=== PATIENT | male | born 1940 | race Caucasian/White ===

== ENCOUNTER 2021-11-15 17:00 | Inpatient (IN) | payer MEDICARE ==
[2021-11-15 17:39] LABS: Hemoglobin 15.3 g/dL (13.5-17.5); Mean Corpuscular HGB CONC 35.1 g/dL (32.0-36.0); Mean Corpuscular Hemoglobin 33.3 pg (27.0-33.0); Mean Corpuscular Volume 94.8 fl (81.2-95.1); Mean Platelet Volume 10.4 fl (7.4-10.4); Platelet Count 219 10x3/uL (150-450)
[2021-11-15 17:54] LABS: Anion Gap 13 mmol/L (10-20); BUN (Urea Nitrogen) 24 mg/dL (8.4-25.7); Calc. Creatinine Clearance 0 mL/min (70-130); Calcium 9.3 mg/dL (7.8-10.44); Carbon Dioxide 30 mmol/L (23-31); Chloride 105 mmol/L (98-107); Estimated GFR 56; Glucose 121 mg/dL (83-110); Potassium 4.3 mmol/L (3.5-5.1); Sodium 144 mmol/L (136-145)
[2021-11-19] MEDS ORDERED: Albumin 5% 500 ML ONE (06:15)
[2021-11-19] MEDS ORDERED: fentaNYL Citrate/PF 100 MCG/2 ML SYRINGE ONE (06:44)
[2021-11-19] MEDS ORDERED: Midazolam HCl 5 mg/5 ml Vial ONE (06:44)
[2021-11-19] MEDS ORDERED: Dexmedetomidine 200 MCG/2 ML VIAL ONE (06:44)
[2021-11-19] MEDS ORDERED: Heparin 10,000 UNITS/1 ML VIAL 30,000 UNITS in Sodium Chloride 0.9% 1,000 ML FS SCH (06:45)
[2021-11-19] MEDS ORDERED: Ondansetron ODT 4 MG TAB ONE (07:10)
[2021-11-19] MEDS ORDERED: Lidocaine 1% PF 5 ML VIAL ONE ×2 (07:10→07:32)
[2021-11-19] MEDS ORDERED: CEFAZOLIN 2 GM VIAL ONE (07:20)
[2021-11-19] MEDS ORDERED: Sodium Chloride 0.9% 100 ML ONE (07:20)
[2021-11-19] MEDS ORDERED: Magnesium Sulfate 1 GM/2 ML VIAL ONE (07:32)
[2021-11-19] MEDS ORDERED: Thrombin 5000 UNITS/5 ML VIAL ONE (07:32)
[2021-11-19] MEDS ORDERED: Heparin 5,000 UNITS/ML VIAL ONE (07:32)
[2021-11-19] MEDS ORDERED: Norepinephrine 4 MG/4 ML VIAL ONE (07:32)
[2021-11-19] MEDS ORDERED: Cardioplegic Soln 1,000 ML BAG ONE (07:32)
[2021-11-19] MEDS ORDERED: Ondansetron PF 4 MG/2 ML Vial ONE (07:32)
[2021-11-19] MEDS ORDERED: Heparin 30,000 units/30 ml VIAL ONE (07:32)
[2021-11-19] MEDS ORDERED: Sodium Bicarb 50 MEQ/50 ML Abboject 8.4% SYRINGE ONE (07:32)
[2021-11-19] MEDS ORDERED: Glycopyrrolate 0.2 MG/ML 5 ML SYRINGE ONE (07:32)
[2021-11-19] MEDS ORDERED: Aminocaproic Acid 5 GM/20 ML VIAL ONE (07:32)
[2021-11-19] MEDS ORDERED: Dexamethasone 20 MG/5 ML VIAL ONE (07:32)
[2021-11-19] MEDS ORDERED: PROPOFOL 200 MG/20 ML VIAL ONE (07:32)
[2021-11-19] MEDS ORDERED: Protamine Sulfate 250 MG/25 ML VIAL ONE (07:32)
[2021-11-19] MEDS ORDERED: Lidocaine 2% PF 100 mg/5 ml Syringe ONE (07:32)
[2021-11-19] MEDS ORDERED: Calcium Chloride 1 GM/10 ML Abboject SYRINGE ONE (07:32)
[2021-11-19] MEDS ORDERED: Mannitol 12.5 GM/50 ML ONE (07:32)
[2021-11-19] MEDS ORDERED: Papaverine 60 MG/2 ML VIAL ONE (07:32)
[2021-11-19] MEDS ORDERED: Vecuronium 10 MG VIAL ONE (07:32)
[2021-11-19] MEDS ORDERED: Insulin Regular 300 UNITS/3 ML VIAL ONE (10:57)
[2021-11-19] MEDS ORDERED: Fentanyl 100 MCG/2 ML VIAL SLOW IVP PRN ×2 (11:39)
[2021-11-19] MEDS ORDERED: Nitroglycerin 50 MG/250 ML BOT 250 ML IVPB PRN (11:39)
[2021-11-19] MEDS ORDERED: NOREPINEPHRINE 8 MG/250 ML-D5W 250 ML IVPB PRN (11:39)
[2021-11-19] MEDS ORDERED: hydrALAZINE 20 MG/ML VIAL SLOW IVP PRN (11:39)
[2021-11-19] MEDS ORDERED: Bisacodyl 10 MG SUPP PR PRN (11:39)
[2021-11-19] MEDS ORDERED: Acetaminophen 325 MG TAB PO PRN (11:39)
[2021-11-19] MEDS ORDERED: Mag-Al 1200 mg/1200 mg/30 ML UDCUP PO PRN (11:39)
[2021-11-19] MEDS ORDERED: niCARdipine 25 MG in Sodium Chloride 0.9% 250 ML 250 ML IVPB PRN (11:39)
[2021-11-19] MEDS ORDERED: Guaifenesin DM 100-10/5 ML UDCUP PO PRN (11:39)
[2021-11-19] MEDS ORDERED: Post-Op Insulin Drip Protocol IVPB ONE (11:39)
[2021-11-19] MEDS ORDERED: Hetastarch 6% 500 ML 500 ML IVPB PRN (11:39)
[2021-11-19] MEDS ORDERED: Morphine 2 MG/ML VIAL SLOW IVP PRN (11:39)
[2021-11-19] MEDS ORDERED: DOPamine 400 MG/D5W 250 ML 250 ML IVPB PRN (11:39)
[2021-11-19] MEDS ORDERED: Ondansetron PF 4 MG/2 ML Vial IVP PRN (11:39)
[2021-11-19] MEDS ORDERED: Bisacodyl 5 MG TAB PO PRN (11:39)
[2021-11-19] MEDS: Lactated Ringer's 1,000 ML IV SCH (12:10)
[2021-11-19 12:22] LABS: Hemoglobin 12.1 g/dL (14.0-18.0); Mean Corpuscular HGB CONC 34.4 g/dL (32.0-36.0); Mean Corpuscular Hemoglobin 34.1 pg (27.0-31.0); Mean Corpuscular Volume 98.9 fL (78.0-98.0); Mean Platelet Volume 8.1 fL (7.4-10.4); Platelet Count 161 thou/uL (130-400); RBC Distribution Width 11.9 % (11.5-14.5); Red Blood Cell (RBC) Count 3.57 mill/uL (4.70-6.10); White Blood Cell (WBC) Count 24.6 thou/uL (4.8-10.8)
[2021-11-19] MEDS ORDERED: Dextrose 5% in Water 1,000 ML IV PRN (12:30)
[2021-11-19] MEDS ORDERED: Dextrose 50% Abboject 50 ML SYRINGE SLOW IVP PRN (12:30)
[2021-11-19] MEDS ORDERED: HUMULIN R 100 UNITS in Sodium Chloride 0.9% 100 ML IVPB SCH (12:30)
[2021-11-19 12:31] LABS: INR-International Normal Ratio 1.5; Prothrombin Time 17.8 sec (12.0-14.7)
[2021-11-19 12:32] LABS: Actual Bicarbonate (HCO3a) 21.7 mEq/L (22-28); Base Excess (BEa) -3.6 mEq/L (-2.0 to +3.0); CO2 Tension 40.2 mmHg (35.0-45.0); Calcium, Ionized (arterial) 1.02 mmol/L (1.12-1.30); Carboxyhemoglobin (COHb) 0.1 gm% (0.0-3.0); Hemoglobin (Hb) 12.6 g/dL (14.0-18.0); O2 Tension (PaO2), arterial 100.7 mmHg (> 70.0); Potassium - ABG Lab 3.48 mmol/L (3.70-5.30); pH, Arterial 7.35 (7.35-7.45)
[2021-11-19 12:32] LABS: PTT 33.2 sec (22.9-36.1)
[2021-11-19 12:36] LABS: Puncture Site Arterial Line
[2021-11-19] MEDS: Ketorolac Tromethamine 30 MG/ML VIAL IVP SCH ×3 (12:36→23:20)
[2021-11-19 12:37] LABS: Anion Gap 12 mmol/L (10-20); BUN (Urea Nitrogen) 16 mg/dL (8.4-25.7); Calc. Creatinine Clearance 84 mL/min (70-130); Calcium 7.1 mg/dL (7.8-10.44); Carbon Dioxide 21 mmol/L (23-31); Chloride 112 mmol/L (98-107); Estimated GFR 91; Glucose 107 mg/dL (83-110); Potassium 3.6 mmol/L (3.5-5.1); Sodium 141 mmol/L (136-145)
[2021-11-19 12:44] LABS: Band 10 % (5-11); Lymphocytes 4 % (21-51); MDiff Complete? YES; Metamyelocyte 1 % (0-0); Monocytes 2 % (0-10); Neutrophil 83 % (42-75); Platelet Morphology Comment Appears Adequate
[2021-11-19] MEDS: Potassium Chloride 20 MEQ/100 ML PREMIX BAG IVPB PRN (13:07)
[2021-11-19] MEDS: CEFAZOLIN 2 GM in Sodium Chloride 0.9% 100 ML IVPB SCH ×2 (16:10→23:19)
[2021-11-19] MEDS: Insulin Regular 300 UNITS/3 ML VIAL SC PRN ×2 (16:17→20:25)
[2021-11-19 17:37] LABS: Potassium 4.5 mmol/L (3.5-5.1)
[2021-11-19 17:58] LABS: ALV-art Gradient 126.475 mmHg (0-20); Actual Bicarbonate (HCO3a) 17.6 mEq/L (22-28); Base Excess (BEa) -7.4 mEq/L (-2.0 to +3.0); CO2 Tension 33.7 mmHg (35.0-45.0); Calcium, Ionized (arterial) 1.04 mmol/L (1.12-1.30); Carboxyhemoglobin (COHb) 0.1 gm% (0.0-3.0); Hemoglobin (Hb) 10.4 g/dL (14.0-18.0); O2 Tension (PaO2), arterial 116.6 mmHg (> 70.0); Potassium - ABG Lab 4.33 mmol/L (3.70-5.30); Puncture Site Arterial Line; pH, Arterial 7.34 (7.35-7.45)
[2021-11-19] MEDS: Atorvastatin Calcium 10 MG TAB PO SCH (20:26)
[2021-11-19] MEDS: Latanoprost 0.005% Ophth Soln 2.5 ml Bottle EA EYE SCH (20:31)
[2021-11-19] MEDS ORDERED: Famotidine/PF 20 mg/2ml Vial SLOW IVP SCH (21:00)
[2021-11-20] MEDS: Lactated Ringer's 1,000 ML IV SCH ×2 (01:12→13:01)
[2021-11-20 04:09] LABS: Anion Gap 11 mmol/L (10-20); BUN (Urea Nitrogen) 22 mg/dL (8.4-25.7); Calc. Creatinine Clearance 64 mL/min (70-130); Calcium 7.3 mg/dL (7.8-10.44); Carbon Dioxide 22 mmol/L (23-31); Chloride 113 mmol/L (98-107); Estimated GFR 71; Glucose 149 mg/dL (83-110); Potassium 4.4 mmol/L (3.5-5.1); Sodium 142 mmol/L (136-145)
[2021-11-20] MEDS: Ketorolac Tromethamine 30 MG/ML VIAL IVP SCH ×3 (05:08→18:53)
[2021-11-20 05:49] LABS: #Lymphocytes 0.3 thou/uL (1.20-3.40); #Monocytes 1.4 thou/uL (0.11-0.59); #Neutrophils 11.3 thou/uL (1.40-6.50); %Basophils 0.4 % (0.0-1.0); %Eosinophils 0.1 % (0.0-10.0); %Lymphocytes 2.3 % (21.0-51.0); %Monocytes 10.4 % (0.0-10.0); %Neutrophils 86.9 % (42.0-75.0); Hemoglobin 6.7 g/dL (14.0-18.0); Mean Corpuscular HGB CONC 33.4 g/dL (32.0-36.0); Mean Corpuscular Hemoglobin 33.7 pg (27.0-31.0); Mean Platelet Volume 8.6 fL (7.4-10.4); Platelet Count 128 thou/uL (130-400); RBC Distribution Width 12.5 % (11.5-14.5); Red Blood Cell (RBC) Count 1.99 mill/uL (4.70-6.10)
[2021-11-20] MEDS: CEFAZOLIN 2 GM in Sodium Chloride 0.9% 100 ML IVPB SCH (08:24)
[2021-11-20] MEDS: Polyethylene Glycol 3350 17 GM Packet PO SCH (08:29)
[2021-11-20] MEDS: Aspirin 325 MG TAB PO SCH (08:29)
[2021-11-20] MEDS: Magnesium 2 GM/50 ML(in water) 2 GM in Premix Bag 1 BAG IVPB SCH (08:30)
[2021-11-20] MEDS ORDERED: Insulin Glargine 30 UNITS/0.3 ML VIAL SC PRN (12:25)
[2021-11-20] MEDS: Atorvastatin Calcium 10 MG TAB PO SCH (21:01)
[2021-11-20] MEDS: Latanoprost 0.005% Ophth Soln 2.5 ml Bottle EA EYE SCH (21:01)
[2021-11-21 04:50] LABS: #Eosinphils 0.1 thou/uL (0.0-0.7); #Lymphocytes 0.8 thou/uL (1.20-3.40); #Monocytes 1.5 thou/uL (0.11-0.59); #Neutrophils 10.3 thou/uL (1.40-6.50); %Basophils 0.2 % (0.0-1.0); %Eosinophils 0.5 % (0.0-10.0); %Lymphocytes 6.3 % (21.0-51.0); %Monocytes 11.6 % (0.0-10.0); %Neutrophils 81.5 % (42.0-75.0); Hemoglobin 8.8 g/dL (14.0-18.0); Mean Corpuscular HGB CONC 33.6 g/dL (32.0-36.0); Mean Corpuscular Hemoglobin 33.5 pg (27.0-31.0); Mean Corpuscular Volume 99.6 fL (78.0-98.0); Mean Platelet Volume 8.8 fL (7.4-10.4); Platelet Count 96 thou/uL (130-400); RBC Distribution Width 14.3 % (11.5-14.5); Red Blood Cell (RBC) Count 2.61 mill/uL (4.70-6.10); White Blood Cell (WBC) Count 12.6 thou/uL (4.8-10.8)
[2021-11-21] MEDS: Lactated Ringer's 1,000 ML IV SCH ×2 (04:54→09:22)
[2021-11-21 05:08] LABS: Anion Gap 10 mmol/L (10-20); BUN (Urea Nitrogen) 26 mg/dL (8.4-25.7); Calc. Creatinine Clearance 64 mL/min (70-130); Calcium 7.3 mg/dL (7.8-10.44); Carbon Dioxide 22 mmol/L (23-31); Chloride 111 mmol/L (98-107); Estimated GFR 68; Glucose 124 mg/dL (83-110); Potassium 4.4 mmol/L (3.5-5.1); Sodium 139 mmol/L (136-145)
[2021-11-21] MEDS ORDERED: Amiodarone 150 MG, Admixture Fee 1 EACH in Dextrose 5% in Water 100 ML IVPB SCH (08:00)
[2021-11-21] MEDS: Aspirin 325 MG TAB PO SCH (09:11)
[2021-11-21] MEDS: Magnesium 2 GM/50 ML(in water) 2 GM in Premix Bag 1 BAG IVPB SCH (09:11)
[2021-11-21] MEDS: Polyethylene Glycol 3350 17 GM Packet PO SCH (09:11)
[2021-11-21] MEDS: Amiodarone 450 MG, Admixture Fee 1 EACH in Dextrose 5% in Water 250 ML IVPB SCH ×2 (09:12→19:34)
[2021-11-21] MEDS: Atorvastatin Calcium 40 MG TAB PO SCH (21:58)
[2021-11-21] MEDS: Latanoprost 0.005% Ophth Soln 2.5 ml Bottle EA EYE SCH (21:58)
[2021-11-22 04:57] LABS: Anion Gap 10 mmol/L (10-20); BUN (Urea Nitrogen) 18 mg/dL (8.4-25.7); Calc. Creatinine Clearance 87 mL/min (70-130); Calcium 7.3 mg/dL (7.8-10.44); Carbon Dioxide 26 mmol/L (23-31); Chloride 110 mmol/L (98-107); Estimated GFR 90; Glucose 118 mg/dL (83-110); Potassium 4.4 mmol/L (3.5-5.1); Sodium 142 mmol/L (136-145)
[2021-11-22 05:20] VITALS: BMI 27.6
[2021-11-22 05:33] LABS: #Eosinphils 0.1 thou/uL (0.0-0.7); #Lymphocytes 0.8 thou/uL (1.20-3.40); #Monocytes 1.7 thou/uL (0.11-0.59); %Basophils 0.1 % (0.0-1.0); %Eosinophils 0.6 % (0.0-10.0); %Lymphocytes 5.5 % (21.0-51.0); %Monocytes 11.8 % (0.0-10.0); Hemoglobin 9.1 g/dL (14.0-18.0); Mean Corpuscular HGB CONC 33.4 g/dL (32.0-36.0); Mean Corpuscular Hemoglobin 33.4 pg (27.0-31.0); Mean Corpuscular Volume 99.9 fL (78.0-98.0); Mean Platelet Volume 8.9 fL (7.4-10.4); Platelet Count 119 thou/uL (130-400); RBC Morphology Normal; Red Blood Cell (RBC) Count 2.71 mill/uL (4.70-6.10); White Blood Cell (WBC) Count 14.6 thou/uL (4.8-10.8)
[2021-11-22] MEDS: Amiodarone 200 MG TAB PO SCH ×2 (08:16→20:42)
[2021-11-22] MEDS: Polyethylene Glycol 3350 17 GM Packet PO SCH (08:17)
[2021-11-22] MEDS: Aspirin Chewable 81 MG TAB PO SCH (08:17)
[2021-11-22] MEDS: Atorvastatin Calcium 40 MG TAB PO SCH (20:42)
[2021-11-22] MEDS: Latanoprost 0.005% Ophth Soln 2.5 ml Bottle EA EYE SCH (20:43)
[2021-11-23 04:24] LABS: #Eosinphils 0.2 thou/uL (0.0-0.7); #Monocytes 1.6 thou/uL (0.11-0.59); %Basophils 0.2 % (0.0-1.0); %Eosinophils 1.3 % (0.0-10.0); %Lymphocytes 6.9 % (21.0-51.0); %Monocytes 11.5 % (0.0-10.0); %Neutrophils 80.1 % (42.0-75.0); Hemoglobin 9.2 g/dL (14.0-18.0); Mean Corpuscular HGB CONC 32.7 g/dL (32.0-36.0); Mean Corpuscular Hemoglobin 33.4 pg (27.0-31.0); Mean Platelet Volume 8.5 fL (7.4-10.4); Platelet Count 177 thou/uL (130-400); Red Blood Cell (RBC) Count 2.75 mill/uL (4.70-6.10); White Blood Cell (WBC) Count 13.8 thou/uL (4.8-10.8)
[2021-11-23 04:51] LABS: Anion Gap 12 mmol/L (10-20); BUN (Urea Nitrogen) 19 mg/dL (8.4-25.7); Calc. Creatinine Clearance 79 mL/min (70-130); Calcium 7.7 mg/dL (7.8-10.44); Carbon Dioxide 25 mmol/L (23-31); Chloride 107 mmol/L (98-107); Estimated GFR 87; Glucose 112 mg/dL (83-110); Potassium 3.9 mmol/L (3.5-5.1); Sodium 140 mmol/L (136-145)
[2021-11-23] MEDS: Potassium Chloride 20 MEQ/100 ML PREMIX BAG IVPB PRN (05:01)
[2021-11-23] MEDS ORDERED: Nitroglycerin 0.4 MG TAB (25 Tab Bottle) SL PRN (06:53)
[2021-11-23] MEDS: Aspirin Chewable 81 MG TAB PO SCH (08:06)
[2021-11-23] MEDS: Furosemide 40 MG TAB PO SCH (08:06)
[2021-11-23] MEDS: Amiodarone 200 MG TAB PO SCH ×4 (08:06→20:42)
[2021-11-23] MEDS: Polyethylene Glycol 3350 17 GM Packet PO SCH (08:06)
[2021-11-23] MEDS: Potassium Chloride 10 MEQ TAB PO SCH (08:06)
[2021-11-23 13:58] LABS: Actual Bicarbonate (HCO3a) 23.5 mEq/L (22-28); Analyzer IN Cardio OR; Base Excess (BEa) -0.5 mEq/L (-2.0 to +3.0); CO2 Tension 37.1 mmHg (35.0-45.0); Calcium, Ionized (arterial) 1.09 mmol/L (1.12-1.30); Carboxyhemoglobin (COHb) 1.2 gm% (0.0-3.0); O2 Tension (PaO2), arterial 147.5 mmHg (> 70.0); Potassium - ABG Lab 3.85 mmol/L (3.70-5.30); pH, Arterial 7.42 (7.35-7.45)
[2021-11-23 13:59] LABS: Actual Bicarbonate (HCO3a) 24.8 mEq/L (22-28); Analyzer IN Cardio OR; Base Excess (BEa) 0.2 mEq/L (-2.0 to +3.0); CO2 Tension 40.1 mmHg (35.0-45.0); Calcium, Ionized (arterial) 0.95 mmol/L (1.12-1.30); Hemoglobin (Hb) 10.6 g/dL (14.0-18.0); O2 Tension (PaO2), arterial 312.2 mmHg (> 70.0); Potassium - ABG Lab 4.81 mmol/L (3.70-5.30); pH, Arterial 7.41 (7.35-7.45)
[2021-11-23 14:00] LABS: Actual Bicarbonate (HCO3a) 23.9 mEq/L (22-28); Analyzer IN Cardio OR; Base Excess (BEa) -0.6 mEq/L (-2.0 to +3.0); CO2 Tension 38.6 mmHg (35.0-45.0); Calcium, Ionized (arterial) 1.11 mmol/L (1.12-1.30); Carboxyhemoglobin (COHb) 0.3 gm% (0.0-3.0); O2 Tension (PaO2), arterial 103.9 mmHg (> 70.0); Potassium - ABG Lab 4.59 mmol/L (3.70-5.30); pH, Arterial 7.41 (7.35-7.45)
[2021-11-23 14:00] LABS: Actual Bicarbonate (HCO3a) 23.4 mEq/L (22-28); Analyzer IN Cardio OR; CO2 Tension 37.7 mmHg (35.0-45.0); Carboxyhemoglobin (COHb) 0.3 gm% (0.0-3.0); Hemoglobin (Hb) 10.4 g/dL (14.0-18.0); O2 Tension (PaO2), arterial 388.5 mmHg (> 70.0); Potassium - ABG Lab 5.23 mmol/L (3.70-5.30); pH, Arterial 7.41 (7.35-7.45)
[2021-11-23 14:00] LABS: Actual Bicarbonate (HCO3v) 25 mEq/L (22-28); Analyzer IN Cardio OR; Base Excess 0.1 mEq/L (-2.0 to +3.0); Chloride (VBG) 107 mmol/L (98-106); Hemoglobin (Hb) 10.5 g/dL (12.6-17.4); Potassium (VBG) 5.03 mmol/L (3.70-5.30); Sodium 134.7 mmol/L (133-146); pH (venous) 7.39 (7.32-7.43)
[2021-11-23 14:01] LABS: Actual Bicarbonate (HCO3a) 23.5 mEq/L (22-28); Analyzer IN Cardio OR; Base Excess (BEa) -3.4 mEq/L (-2.0 to +3.0); CO2 Tension 50.3 mmHg (35.0-45.0); Calcium, Ionized (arterial) 1.07 mmol/L (1.12-1.30); Carboxyhemoglobin (COHb) 0.2 gm% (0.0-3.0); Hemoglobin (Hb) 11.9 g/dL (14.0-18.0); O2 Tension (PaO2), arterial 86.5 mmHg (> 70.0); Potassium - ABG Lab 3.46 mmol/L (3.70-5.30); pH, Arterial 7.29 (7.35-7.45)
[2021-11-23 14:06] LABS: Actual Bicarbonate (HCO3a) 24.2 mEq/L (22-28); Base Excess (BEa) -0.9 mEq/L (-2.0 to +3.0); CO2 Tension 41.6 mmHg (35.0-45.0); Calcium, Ionized (arterial) 1.06 mmol/L (1.12-1.30); Carboxyhemoglobin (COHb) 0.4 gm% (0.0-3.0); Hemoglobin (Hb) 14.2 g/dL (14.0-18.0); O2 Tension (PaO2), arterial 290.6 mmHg (> 70.0); Potassium - ABG Lab 4.05 mmol/L (3.70-5.30); Puncture Site Arterial Line; pH, Arterial 7.38 (7.35-7.45)
[2021-11-23 14:07] LABS: Puncture Site Arterial Line
[2021-11-23 14:08] LABS: Puncture Site Arterial Line
[2021-11-23 14:09] LABS: Puncture Site Arterial Line
[2021-11-23 14:09] LABS: Puncture Site Arterial Line
[2021-11-23 14:09] LABS: Puncture Site Arterial Line
[2021-11-23] MEDS: Atorvastatin Calcium 40 MG TAB PO SCH (20:41)
[2021-11-23] MEDS: Latanoprost 0.005% Ophth Soln 2.5 ml Bottle EA EYE SCH (20:43)
[2021-11-24] MEDS: Amiodarone 200 MG TAB PO SCH ×3 (10:06→20:36)
[2021-11-24] MEDS: Polyethylene Glycol 3350 17 GM Packet PO SCH (10:06)
[2021-11-24] MEDS: Aspirin Chewable 81 MG TAB PO SCH (10:07)
[2021-11-24] MEDS: Furosemide 40 MG TAB PO SCH (10:07)
[2021-11-24] MEDS: Potassium Chloride 10 MEQ TAB PO SCH (10:07)
[2021-11-24] MEDS: Atorvastatin Calcium 40 MG TAB PO SCH (20:36)
[2021-11-24] MEDS: Latanoprost 0.005% Ophth Soln 2.5 ml Bottle EA EYE SCH (20:37)
[2021-11-25] MEDS: Amiodarone 200 MG TAB PO SCH (09:57)
[2021-11-25] MEDS: Polyethylene Glycol 3350 17 GM Packet PO SCH (09:57)
[2021-11-25] MEDS: Potassium Chloride 10 MEQ TAB PO SCH (09:57)
[2021-11-25] MEDS: Aspirin Chewable 81 MG TAB PO SCH (09:58)
[2021-11-25] MEDS: Furosemide 40 MG TAB PO SCH (09:58)
[2021-11-25 11:24] VITALS: BP 123/86; TEMP 98
== END 2021-11-25 14:15 | disposition home or self-care (01) | DRG 236 ==
LOC: SURG A 11-19 05:47 → CCU 11-19 10:51 → 2NO 11-23 18:32
PROVIDERS: ADMIT Thoracic Surgery (Cardiothoracic Vascular Surgery); ATTEND Thoracic Surgery (Cardiothoracic Vascular Surgery)
PROC: 02100Z9 Bypass Coronary Artery, One Artery from Left Internal Mammary, Open Approach (ICD-10-PCS; principal; 2021-11-19)
PROC: 021309W Bypass Coronary Artery, Four or More Arteries from Aorta with Autologous Venous Tissue, Open Approach (ICD-10-PCS; 2021-11-19)
PROC: 06BQ3ZZ Excision of Left Saphenous Vein, Percutaneous Approach (ICD-10-PCS; 2021-11-19)
PROC: 06BP0ZZ Excision of Right Saphenous Vein, Open Approach (ICD-10-PCS; 2021-11-19)
PROC: 5A1221Z Performance of Cardiac Output, Continuous (ICD-10-PCS; 2021-11-19)
PROC: 02L70CK Occlusion of Left Atrial Appendage with Extraluminal Device, Open Approach (ICD-10-PCS; 2021-11-19)
PROC: 30233N1 Transfusion of Nonautologous Red Blood Cells into Peripheral Vein, Percutaneous Approach (ICD-10-PCS; 2021-11-20)
DX: I25.10 Atherosclerotic heart disease of native coronary artery without angina pectoris (principal); D62 Acute posthemorrhagic anemia; I10 Essential (primary) hypertension; K21.9 Gastro-esophageal reflux disease without esophagitis; E78.5 Hyperlipidemia, unspecified; I48.91 Unspecified atrial fibrillation
CPT/HCPCS: 36415; 36416; 36430; 71045; 80048; 82805; 85025; 85027; 85610; 85730; 86850; 86900; 86901; 87811; 93005; 93010; 93798; 94002; 97139; C1751; C1776; J0282; J0690; J1100; J1265; J1642; J1644; J1815; J1885; J2001; J2150; J2250; J2405; J2440; J2704; J2710; J2720; J3370; J3475; J3480; J3490; J7070; J7120; P9016; P9045; Q0162; S0017; S0028

== ENCOUNTER 2021-11-15 17:05 | Outpatient (CLI) | payer MEDICARE ==
[2021-11-15 17:39] LABS: Hemoglobin 15.3 g/dL (13.5-17.5); Mean Corpuscular HGB CONC 35.1 g/dL (32.0-36.0); Mean Corpuscular Hemoglobin 33.3 pg (27.0-33.0); Mean Corpuscular Volume 94.8 fl (81.2-95.1); Mean Platelet Volume 10.4 fl (7.4-10.4); Platelet Count 219 10x3/uL (150-450)
[2021-11-15 17:54] LABS: Anion Gap 13 mmol/L (10-20); BUN (Urea Nitrogen) 24 mg/dL (8.4-25.7); Calc. Creatinine Clearance 0 mL/min (70-130); Calcium 9.3 mg/dL (7.8-10.44); Carbon Dioxide 30 mmol/L (23-31); Chloride 105 mmol/L (98-107); Estimated GFR 56; Glucose 121 mg/dL (83-110); Potassium 4.3 mmol/L (3.5-5.1); Sodium 144 mmol/L (136-145)
== END 2021-11-15 17:06 | disposition home or self-care (01) ==
LOC: LABBT 17:05
PROVIDERS: ATTEND Thoracic Surgery (Cardiothoracic Vascular Surgery)
DX: Z01.812 Encounter for preprocedural laboratory examination (principal); Z20.822 Contact with and (suspected) exposure to COVID-19
CPT/HCPCS: 80048; 85027; 86850; 86900; 86901; 87811

== ENCOUNTER 2021-12-17 13:38 | Emergency (ER) | payer MEDICARE | END 2021-12-17 14:40 | disposition home or self-care (01) | LOC: ERS 13:38 | DX: I97.89 Other postprocedural complications and disorders of the circulatory system, not elsewhere classified (principal); I10 Essential (primary) hypertension; Z79.82 Long term (current) use of aspirin; Z79.899 Other long term (current) drug therapy | CPT/HCPCS: 99283 ==